=== PATIENT | male | born 1965 | race Caucasian/White ===

== ENCOUNTER 2017-12-01 09:01 | Emergency (ER) | payer SELFPAY ==
[2017-12-01] MEDS ORDERED: ACETAMINOPHEN 325 MG TABLET PO ONE (09:08)
[2017-12-01] MEDS ORDERED: DIPH/PERTUSS(ACELL)/TETANUS VAC/PF 0.5 ML SYR (>=10YO) IM ONE (09:23)
[2017-12-01] MEDS ORDERED: IBUPROFEN 800 MG TABLET PO ONE (09:23)
--- NOTE | 2017-12-01 10:21 | RADIOLOGY REPORT (SQ) ---
EXAM DESCRIPTION: ELBOW RIGHT OVER 2 VIEWS COMPLETED DATE/TIME: 12/01/2017 9:58 am REASON FOR STUDY: fell COMPARISON: None. NUMBER OF VIEWS: Four views. TECHNIQUE: AP, lateral, and both oblique radiographic images acquired of the right elbow. LIMITATIONS: None. FINDINGS: MINERALIZATION: Normal. BONES: No acute fracture or dislocation. No worrisome bone lesions. JOINT: No elbow joint effusion. There is mild bony spurring along the distal humerus at the capitell um, and proximal ulna at the coronoid process. No loose bodies. SOFT TISSUES: Olecranon soft tissue swelling. No foreign body. OTHER: No other significant finding. IMPRESSION: Bony spurring. No acute fracture. No joint effusion. TECHNICAL DOCUMENTATION: JOB ID: [id number] [employer]- All Rights Reserved Reading location - IP/workstation name: [email or web address]
--- NOTE | 2017-12-01 10:36 | ER Document Report ---
HPI - HPI Patient complains to provider of: Right elbow injury Onset: Just prior to arrival Onset/Duration: Sudden Quality of pain: Throbbing Pain Level: 4 Context: 51-year-old male fell on cement on his lateral right elbow causing abrasions. Tetanus is not current. He states he has tingling only on the very tip of his fourth and fifth right finger, not even the whole distal phalanx just the tip. Associated Symptoms: None Exacerbated by: Movement Relieved by: Denies Similar symptoms previously: No Recently seen / treated by doctor: No - ROS ROS below otherwise negative: Yes Systems Reviewed and Negative: Yes All other systems reviewed and negative - MUSCULOSKELETAL Musculoskeletal: REPORTS: Extremity pain - right elbow and arm Past Medical History - General Information source: Patient - Social History Smoking Status: Current Every Day Smoker Chew tobacco use (# tins/day): No Frequency of alcohol use: Social Drug Abuse: None Lives with: Family Family History: Reviewed & Not Pertinent Patient has suicidal ideation: No Patient has homicidal ideation: No - Medical History Medical History: Negative Renal/ Medical History: Denies: Hx Peritoneal Dialysis Past Surgical History: Reports: Hx Orthopedic Surgery - low back, left arm, right knee Vertical Provider Document - CONSTITUTIONAL Agree With Documented VS: Yes Exam Limitations: No Limitations - INFECTION CONTROL TRAVEL OUTSIDE OF THE [place] IN LAST 30 DAYS: No - HEENT HEENT: Normocephalic - NECK Neck: Supple - MUSCULOSKELETAL/EXTREMETIES Musculoskeletal/Extremeties: MAEW, FROM, Tender - mild tender lateral right elbow and proximal forearm there are 2 bruises and abrasions. - NEURO Level of Consciousness: Awake, Alert Motor/Sensory: No Motor Deficit Notes: He states his fourth and fifth fingertips are tingling but he can feel me touch them Course - Re-evaluation Re-evalutation: 12/01/17 10:32 X-ray is negative per radiologist 12/01/17 10:[address] Hutchison about the tingling treat him with anti-inflammatories and referral to orthopedics if it persists - Vital Signs Vital signs: Temp Pulse Resp BP Pulse Ox 98.2 F 72 16 152/86 H 94 12/01/17 09:16 12/01/17 09:16 12/01/17 09:16 12/01/17 09:16 12/01/17 09:16 Discharge - Discharge Clinical Impression: Right elbow abrasion and contusion Condition: Good Disposition: HOME, SELF-CARE Instructions: Contusion ([facility]), Abrasions ([facility]), Temporary Sling ([facility]) Additional Instructions: Motrin for inflammation and pain Sling for several days Return to the emergency room any concerns See orthopedist if symptoms persist Prescriptions: Ibuprofen [Motrin 800 mg Tablet] 800 mg PO Q8HP PRN #30 tablet PRN Reason: Forms: Return to Work Referrals: FRANCHESCA STEPHEN MD [ACTIVE STAFF] - Follow up as needed
[2017-12-01 11:01] VITALS: BP 153/95
== END 2017-12-01 11:02 | disposition home or self-care (01) ==
LOC: EDBD → ER 09:01
DX: S50.311A Abrasion of right elbow, initial encounter (principal); R20.2 Paresthesia of skin; W19.XXXA Unspecified fall, initial encounter; Z23 Encounter for immunization; F17.200 Nicotine dependence, unspecified, uncomplicated
CPT/HCPCS: 90471; 90715; 99283